=== PATIENT | female | born 1950 | race Asian ===

== ENCOUNTER 2021-02-24 11:07 | Inpatient (IN) | payer OTHER, MEDICAID, SELFPAY ==
[~2021-02-24] VITALS: Ht 152.4 cm; Wt 48.1 kg
[2021-02-24 16:00] VITALS: BP_SYST 119
[2021-02-24] MEDS ORDERED: MOM PO (17:13)
[2021-02-24] MEDS ORDERED: AMLO5TAB4 PO (17:13)
[2021-02-24] MEDS ORDERED: DOCU-144 PO (17:13)
[2021-02-24] MEDS ORDERED: TRAZ-250 PO (17:13)
[2021-02-24] MEDS ORDERED: BUPR-120 PO (17:13)
[2021-02-24] MEDS ORDERED: LEVE500T9 PO (17:13)
[2021-02-24] MEDS ORDERED: NA P133E41 RC (17:13)
[2021-02-24] MEDS ORDERED: ACET325T PO (17:13)
[2021-02-24] MEDS ORDERED: OLAN5TAB71 PO (17:13)
[2021-02-24] MEDS ORDERED: CRAN450T9 PO (17:13)
[2021-02-24] MEDS ORDERED: SYN50 PO (17:13)
[2021-02-24] MEDS ORDERED: ACET-2634 PO (17:13)
[2021-02-24] MEDS ORDERED: LIP20 PO (17:13)
[2021-02-24] MEDS ORDERED: BISA10SU61 RC (17:13)
[2021-02-24] MEDS ORDERED: FLEETMO RC (17:13)
[2021-02-24] MEDS ORDERED: LAM25 PO (17:13)
[2021-02-24] MEDS ORDERED: CYAN100010 PO (17:13)
[2021-02-24] MEDS ORDERED: ERGO1250 PO (17:13)
[2021-02-24] MEDS ORDERED: ACETAMINOPHEN 325 MG TABLET PO PRN (17:45)
[2021-02-24] MEDS ORDERED: ACETAMINOPHEN 500 MG TABLET PO SCH (17:45)
[2021-02-24] MEDS ORDERED: MINERAL OIL 133 ML ENEMA RC PRN (17:45)
[2021-02-24 18:07] VITALS: BP_SYST 119
[2021-02-24] MEDS: D5/0.45 NS 1,000 ML IV SCH (18:56)
[2021-02-24 19:34] LABS: BASOPHILS % (AUTO) 0.9 % (0.0-2.0); EOSINOPHILS # (AUTO) 0.3 K/uL (0.0-0.4); EOSINOPHILS % (AUTO) 5.8 % (0.0-4.0); HEMATOCRIT 39.3 % (36-48); HEMOGLOBIN 13.2 g/dL (12.0-16.0); LYMPHOCYTES # (AUTO) 1.3 K/uL (1.0-5.5); LYMPHOCYTES % (AUTO) 28.6 % (20.5-51.5); MEAN CORPUSCULAR HEMOGLOBIN 30 pg (27-31); MEAN CORPUSCULAR HGB CONC 34 % (32-36); MEAN CORPUSCULAR VOLUME 90 fL (79.0-98.0); MONOCYTES # (AUTO) 0.4 K/uL (0.0-1.0); MONOCYTES % (AUTO) 9.4 % (1.7-9.3); NEUTROPHILS # (AUTO) 2.4 K/uL (1.8-7.7); NEUTROPHILS % (AUTO) 55.3 % (40.0-70.0); PLATELET COUNT (AUTO) 206 K/uL (130-430); RED BLOOD CELL COUNT(AUTO) 4.37 MIL/uL (4.2-6.2); RED CELL DISTRIBUTION WIDTH 13.8 % (9.0-15.0); WHITE BLOOD COUNT (AUTO) 4.4 K/uL (4.8-10.8)
[2021-02-24 19:42] LABS: ALBUMIN 3.7 g/dL (3.4-4.8); CALCIUM 10.4 mg/dL (8.4-11.0); CREATININE 0.99 mg/dL (0.55-1.30); POTASSIUM 3.4 mmol/L (3.5-5.1); TOTAL BILIRUBIN 0.3 mg/dL (0.0-1.0)
[2021-02-24 20:31] VITALS: BP_SYST 115
[2021-02-24] MEDS: MILK OF MAGNESIA 30 ML UDC PO SCH (20:43)
[2021-02-24] MEDS: traZODone HCL 50 MG TABLET (DESYREL) PO SCH (20:43)
[2021-02-24] MEDS: levETIRAcetam 500 MG TABLET PO SCH (20:44)
[2021-02-24] MEDS: ATORVASTATIN 20 MG TABLET PO SCH (20:44)
[2021-02-24] MEDS: LamoTRIgine 25 MG TABLET PO SCH (20:50)
[2021-02-24 23:38] VITALS: BP_SYST 97
--- NOTE | 2021-02-25 02:59 | NUR ---
CONSULTATION PAGED/CALLED Reason for Consultation: CARDIO EVAL Person Who was Notified: OVIDIO Consulting Physician: NGUYEN Sewing Supervisor Specialty: Ordering Physician: RHYS
--- NOTE | 2021-02-25 03:00 | NUR ---
CONSULTATION PAGED/CALLED Reason for Consultation: INFECTION Person Who was Notified: OVIDIO Consulting Physician: Tim ROSALES [employer] Specialty: Ordering Physician: RHYS
[2021-02-25] MEDS ORDERED: SODIUM PHOSPHATE,MONO-DIBASIC 133 ML ENEMA RC PRN (05:45)
--- NOTE | 2021-02-25 06:45 | NUR ---
Patient pulled out peripheral iv x2. Restarted new iv to left hand, #22 gauge. Patient tolerated procedure well. Pt remains stable, BS128. Will continue to monitor.
[2021-02-25] MEDS: LEVOTHYROXINE SODIUM 0.05 MG TABLET PO SCH (07:23)
--- NOTE | 2021-02-25 07:30 | NUR ---
Nurse knowledge exchange completed with Andrea Jeffery. Passed on to receiving nurse that pt needs diet order and urine sample. Pt remains confused, a/o x2, needing frequent re orientation, vital signs stable at this time.
[2021-02-25 08:00] VITALS: BP_SYST 122
--- NOTE | 2021-02-25 08:00 | NUR ---
A/Ox1, on room air. IV on left FA, #22, site intact and patent. Ambulatory. Call light in place, bed locked at the lowest position, will continue to monitor.
[2021-02-25] MEDS: OLANZapine 5 MG TABLET PO SCH (08:26)
[2021-02-25] MEDS: DOCUSATE SODIUM 100 MG CAPSULE PO SCH (08:27)
[2021-02-25] MEDS: LamoTRIgine 25 MG TABLET PO SCH ×2 (08:27→20:33)
[2021-02-25] MEDS: levETIRAcetam 500 MG TABLET PO SCH ×2 (08:28→20:33)
[2021-02-25] MEDS: CYANOCOBALAMIN 1000 mCg TABLET PO SCH (08:28)
[2021-02-25] MEDS: amLODIPine BESYLATE 5 MG TABLET PO SCH (08:31)
[2021-02-25] MEDS ORDERED: BISACODYL 10 MG/SUPPOSITORY RC PRN (09:00)
[2021-02-25] MEDS ORDERED: CRANBERRY FRUIT PO SCH (09:00)
[2021-02-25] MEDS ORDERED: buPROPion HCL 150 MG XL TAB PO SCH (09:00)
--- NOTE | 2021-02-25 09:13 | NUR ---
per division roadmaster DR CEDILLO, [employer] WAS CALLED TO REQUEST FOR THE PACEMAKER TO BE INTERROGATED. LEFT A VOICE MESSAGE ON THE PHONE OF THE HOSPITALITY SPECIALIST IN THE AREA AND SPOKE TO CHATO, THE LITIGATION SPECIALIST.
--- NOTE | 2021-02-25 10:06 | NUR ---
CONSULTATION PAGED/CALLED Reason for Consultation: PSYCHIATRIC ILLNESS Person Who was Notified: SONDRA Consulting Physician: JOHN Insolvency Consultant Specialty: Ordering Physician: NGUYEN
--- NOTE | 2021-02-25 10:25 | NUR ---
Nutrition Update Darwin Scale 17 noted. Pt admitted for dizziness, DM. Diet: CCHO, finely chopped, mechanical soft w/ Glucerna BID BMI: 20.5 kg/m2 RD to follow per nutrition care standards.
[2021-02-25 11:33] VITALS: BP_SYST 112
[2021-02-25] MEDS ORDERED: DIATR MEGLU/DIATRIZ SOD 30 ML SOLUTION PO ONE (13:22)
[2021-02-25 13:49] LABS: BILIRUBIN,URINE NEGATIVE (NEGATIVE); BLOOD, URINE NEGATIVE (NEGATIVE); CLARITY/URINE CLEAR (CLEAR); COLOR,URINE YELLOW (YELLOW); GLUCOSE,URINE NEGATIVE (NEGATIVE); KETONES,URINE NEGATIVE (NEGATIVE); LEUKOCYTE ESTERASE ,URINE NEGATIVE (NEGATIVE); NITRITE, URINE NEGATIVE (NEGATIVE); PROTEIN URINE NEGATIVE (NEGATIVE); UROBILINOGEN,URINE 0.2 (0.2-1.0)
--- NOTE | 2021-02-25 14:45 | NUR ---
PATIENT IS ENCOURAGED TO DRINK THE CONTRAST FOR THE CT.
--- NOTE | 2021-02-25 15:30 | NUR ---
PATIENT IS TAKEN DOWN THE CT.
[2021-02-25 15:36] VITALS: BP_SYST 121
--- NOTE | 2021-02-25 16:20 | NUR ---
PATIENT RETURNS FROM CT SCAN. TOLERATED WITHOUT DISTRESS.
--- NOTE | 2021-02-25 19:15 | NUR ---
PATIENT ATTEMPTS TO GET OUT BED AND REMOVED IV. NEW IV SITE INITIATED. PATIENT IS ALSO ADVISED NOT TO GET OUT OF BED WITHOUT ASSISTANCE.
--- NOTE | 2021-02-25 19:37 | NUR ---
ROUNDS PATIENT RESTING COMFORTABLY IN BED AT THIS TIME, VITALS STABLE, NO PAIN AND DISCOMFORT AT THIS TIME. ASSESSMENT DONE AND DOCUEMNTED. SEE FLOWSHEET. NEEDS ATTENDED TO. SAFETY AND FALL MEASURES IN PLACED. CALL LIGHT PLACED WITHIN REACH.
[2021-02-25 20:00] VITALS: BP_SYST 119
[2021-02-25] MEDS: ATORVASTATIN 20 MG TABLET PO SCH (20:33)
[2021-02-25] MEDS: traZODone HCL 50 MG TABLET (DESYREL) PO SCH (20:33)
[2021-02-25] MEDS: MILK OF MAGNESIA 30 ML UDC PO SCH (20:34)
[2021-02-25] MEDS: D5/0.45 NS 1,000 ML IV SCH (23:45)
[2021-02-26] VITALS: BP_SYST 123
--- NOTE | 2021-02-26 03:15 | NUR ---
DR. ROSALES PATIENT SEEN BY DR. ROSALES, NO NEW ORDERS AT THIS TIME. WILL CONTINUE TO MONITOR
[2021-02-26] MEDS: D5/0.45 NS 1,000 ML IV SCH ×3 (04:52→20:00)
[2021-02-26] MEDS: LEVOTHYROXINE SODIUM 0.05 MG TABLET PO SCH (06:18)
--- NOTE | 2021-02-26 07:30 | NUR ---
Initial Note Patient asleep, wakes to verbal stimuli. Alert and oriented x 3, reoriented to time. No pain, no distress. Call light, bedside table, and phone within reach. Encouraged to call.
[2021-02-26 07:57] LABS: BASOPHILS % (AUTO) 0.7 % (0.0-2.0); EOSINOPHILS # (AUTO) 0.3 K/uL (0.0-0.4); EOSINOPHILS % (AUTO) 6.8 % (0.0-4.0); HEMATOCRIT 37.3 % (36-48); HEMOGLOBIN 12.4 g/dL (12.0-16.0); LYMPHOCYTES # (AUTO) 1.2 K/uL (1.0-5.5); LYMPHOCYTES % (AUTO) 28.7 % (20.5-51.5); MEAN CORPUSCULAR HEMOGLOBIN 30 pg (27-31); MEAN CORPUSCULAR HGB CONC 33 % (32-36); MEAN CORPUSCULAR VOLUME 91 fL (79.0-98.0); MONOCYTES # (AUTO) 0.3 K/uL (0.0-1.0); MONOCYTES % (AUTO) 8.1 % (1.7-9.3); NEUTROPHILS # (AUTO) 2.3 K/uL (1.8-7.7); NEUTROPHILS % (AUTO) 55.7 % (40.0-70.0); PLATELET COUNT (AUTO) 194 K/uL (130-430); RED BLOOD CELL COUNT(AUTO) 4.09 MIL/uL (4.2-6.2); RED CELL DISTRIBUTION WIDTH 13.9 % (9.0-15.0); WHITE BLOOD COUNT (AUTO) 4.1 K/uL (4.8-10.8)
[2021-02-26 08:00] VITALS: BP_SYST 120
--- NOTE | 2021-02-26 08:30 | NUR ---
MD Rounds Dr. Barrett at bedside.
[2021-02-26 09:05] LABS: ALBUMIN 3.2 g/dL (3.4-4.8); CALCIUM 9.2 mg/dL (8.4-11.0); CREATININE 0.82 mg/dL (0.55-1.30); POTASSIUM 3.7 mmol/L (3.5-5.1); THYROID STIMULATING HORMONE 0.55 uIu/mL (0.36-3.74); TOTAL BILIRUBIN 0.4 mg/dL (0.0-1.0)
[2021-02-26] MEDS ORDERED: CITALOPRAM HYDROBROMIDE 20 MG TABLET PO ONE (09:30)
[2021-02-26] MEDS: OLANZapine 5 MG TABLET PO SCH (09:44)
[2021-02-26] MEDS: DOCUSATE SODIUM 100 MG CAPSULE PO SCH (09:46)
[2021-02-26] MEDS: amLODIPine BESYLATE 5 MG TABLET PO SCH (09:46)
[2021-02-26] MEDS: levETIRAcetam 500 MG TABLET PO SCH ×2 (09:46→21:40)
[2021-02-26] MEDS: LamoTRIgine 25 MG TABLET PO SCH ×2 (09:47→21:30)
[2021-02-26] MEDS: CYANOCOBALAMIN 1000 mCg TABLET PO SCH (09:47)
[2021-02-26 11:32] VITALS: BP_SYST 105
--- NOTE | 2021-02-26 12:00 | NUR ---
Notes Patient confused, attempting to get out of bed without assistance. No pain or distress noted. Safety precautions in place, bed locked in lowest position with alarm on. Will continue to monitor.
--- NOTE | 2021-02-26 14:00 | NUR ---
Notes Patient pulled out IV, states she does not know why. Dressing placed to previous IV site, no active bleeding. Will attempt new IV following PT evaluation.
[2021-02-26 15:41] VITALS: BP_SYST 117
--- NOTE | 2021-02-26 15:59 | NUR ---
Dietitian Recommendations * Recommend CCHO, finely chopped, mechanical soft, Glucerna TID (ONS provides 660 kcal/day, 30 gm protein/day) * Maximum encouragement at meal times LP, RD Please refer to Nutrition Assessment for details. Addendum: 02/26/21 at [address] Amended: Links added.
--- NOTE | 2021-02-26 16:00 | NUR ---
Notes Patient attempting to get out of bed, confused. Requires constant reminders. Reoriented patient and provided education on plan of care and reason for hospital visit. Refusing new IV insertion at this time. Instructed on use and need for medications. Patient refused stating she wanted to rest. Will continue to educate and monitor. Will attempt at a later time. Bed in lowest position with alarm on. Call light and bedside table in reach, encouraged to call.
--- NOTE | 2021-02-26 17:19 | NUR ---
Notes New Iv 24 gauge inserted to right hand. Patient tolerated well; no pain or signs of infiltration or phlebitis.
--- NOTE | 2021-02-26 18:42 | NUR ---
Closing Note Patient resting in bed, no pain or distress noted. IVF running per MD order. Bedside table and call light in reach, reoriented patient on use. All needs met. Safety precautions in place, bed locked in lowest position with alarm on. Encouraged to call. Will continue to monitor and endorse to night nurse.
[2021-02-26 20:00] VITALS: BP_SYST 116; BP_SYST 122
--- NOTE | 2021-02-26 20:00 | NUR ---
Received pt in bed, verbally responsive and able to make most needs known. A/O X 1-2. No apparent signs of distress. Breathing adequately on RA. U/A specimen collected at this time; Ambulated to restroom. Safety precautions observed. IVF running as ordered. No signs of infiltration from IV site. Bed in low position. Call light within reach.
[2021-02-26] MEDS ORDERED: traZODone HCL 50 MG TABLET (DESYREL) PO SCH (21:00)
[2021-02-26] MEDS: MILK OF MAGNESIA 30 ML UDC PO SCH (21:41)
[2021-02-26] MEDS: ATORVASTATIN 20 MG TABLET PO SCH (21:41)
[2021-02-26 23:29] LABS: BILIRUBIN,URINE NEGATIVE (NEGATIVE); BLOOD, URINE NEGATIVE (NEGATIVE); CLARITY/URINE CLEAR (CLEAR); COLOR,URINE YELLOW (YELLOW); GLUCOSE,URINE NEGATIVE (NEGATIVE); KETONES,URINE NEGATIVE (NEGATIVE); LEUKOCYTE ESTERASE ,URINE NEGATIVE (NEGATIVE); NITRITE, URINE NEGATIVE (NEGATIVE); PROTEIN URINE NEGATIVE (NEGATIVE); UROBILINOGEN,URINE 0.2 (0.2-1.0)
[2021-02-27 01:44] VITALS: BP_SYST 140
[2021-02-27 04:00] VITALS: BP_SYST 129
[2021-02-27] MEDS: D5/0.45 NS 1,000 ML IV SCH ×2 (04:53→15:16)
[2021-02-27] MEDS: LEVOTHYROXINE SODIUM 0.05 MG TABLET PO SCH (06:18)
--- NOTE | 2021-02-27 06:40 | NUR ---
CLOSING NOTE Pt noted in bed, easily arousable. No apparent signs of distress. Breathing adequately on RA. Episode of incontinence to urine; inocente care rendered;Linens changed. Denies any pain/discomfort at this time.
[2021-02-27 07:50] LABS: BASOPHILS % (AUTO) 0.8 % (0.0-2.0); EOSINOPHILS # (AUTO) 0.3 K/uL (0.0-0.4); EOSINOPHILS % (AUTO) 5.3 % (0.0-4.0); HEMATOCRIT 39.9 % (36-48); HEMOGLOBIN 13.2 g/dL (12.0-16.0); LYMPHOCYTES # (AUTO) 1.1 K/uL (1.0-5.5); LYMPHOCYTES % (AUTO) 20.7 % (20.5-51.5); MEAN CORPUSCULAR HEMOGLOBIN 30 pg (27-31); MEAN CORPUSCULAR HGB CONC 33 % (32-36); MEAN CORPUSCULAR VOLUME 91 fL (79.0-98.0); MONOCYTES # (AUTO) 0.3 K/uL (0.0-1.0); NEUTROPHILS # (AUTO) 3.7 K/uL (1.8-7.7); NEUTROPHILS % (AUTO) 67.2 % (40.0-70.0); PLATELET COUNT (AUTO) 205 K/uL (130-430); RED BLOOD CELL COUNT(AUTO) 4.37 MIL/uL (4.2-6.2); RED CELL DISTRIBUTION WIDTH 13.7 % (9.0-15.0); WHITE BLOOD COUNT (AUTO) 5.6 K/uL (4.8-10.8)
[2021-02-27 08:01] VITALS: BP_SYST 126
--- NOTE | 2021-02-27 08:13 | NUR ---
Initial Note Patient awake and alert, oriented x 2, reoriented to time and event. No pain or distress observed. IVF infusing per MD order. Call light and bedside table in reach. Non-skid socks on. Bed in lowest position with alarm on. Encouraged to call.
[2021-02-27] MEDS: CYANOCOBALAMIN 1000 mCg TABLET PO SCH (08:42)
[2021-02-27] MEDS: levETIRAcetam 500 MG TABLET PO SCH ×2 (08:42→22:19)
[2021-02-27] MEDS: amLODIPine BESYLATE 5 MG TABLET PO SCH (08:43)
[2021-02-27] MEDS: CITALOPRAM HYDROBROMIDE 20 MG TABLET PO SCH (08:43)
[2021-02-27] MEDS: DOCUSATE SODIUM 100 MG CAPSULE PO SCH (08:43)
[2021-02-27] MEDS: LamoTRIgine 25 MG TABLET PO SCH ×2 (08:43→22:19)
[2021-02-27] MEDS: OLANZapine 5 MG TABLET PO SCH (08:43)
[2021-02-27] MEDS ORDERED: CITALOPRAM HYDROBROMIDE 20 MG TABLET PO SCH (09:00)
[2021-02-27 09:44] LABS: CREATININE 0.69 mg/dL (0.55-1.30); POTASSIUM 3.4 mmol/L (3.5-5.1)
[2021-02-27 12:00] VITALS: BP_SYST 127
--- NOTE | 2021-02-27 12:00 | NUR ---
Notes Patient asleep in bed, wakes to verbal stimuli. Confusion noted, requires constant reorienting to situation and time. Denies pain, no distress. Call light and bedside table in reach. Bed locked in lowest position with alarm on. Encouraged to call.
[2021-02-27 16:08] VITALS: BP_SYST 125
--- NOTE | 2021-02-27 16:25 | NUR ---
Notes Patient resting in bed, no pain or distress. Encouraged patient to eat a snack, only eats a few bites of applesauce. Able to take a couple of sips of Glucerna. Will continue to monitor and offer snacks. Call light in reach, bed in lowest position with alarm on. Encouraged patient to call.
--- NOTE | 2021-02-27 18:55 | NUR ---
Closing Note Patient awake, alert, and out of bed. Pulled out IV catheter stating she needed to use restroom. Reoriented to call light. Pressure held on previous IV site for active bleeding. Assisted patient to restroom. Linens changed. Will attempt new IV insertion. No pain or distress observed. Safety precautions in place. Bed locked in lowest position with alarm on. Call light and bedside table in reach. Will endorse to night nurse.
[2021-02-27 20:00] VITALS: BP_SYST 134
--- NOTE | 2021-02-27 20:45 | NUR ---
Left Fore arm 22 Gauge IV Re start , IV patent no s/sx of infiltration IV fluids infusing as ordered .
[2021-02-27] MEDS: MILK OF MAGNESIA 30 ML UDC PO SCH (22:19)
[2021-02-27] MEDS: ATORVASTATIN 20 MG TABLET PO SCH (22:19)
--- NOTE | 2021-02-27 23:35 | NUR ---
patient awake assist out of bed to Rest Room ambulates FALL MEASURES implemented , assist back to bed procedures explained call hoang given to patient / .
--- NOTE | 2021-02-27 23:46 | NUR ---
Hourly Rounding patient Resting verbally Responsive no SOB chest movement symmetrical also unlabored .
[2021-02-28 00:10] VITALS: BP_SYST 115
--- NOTE | 2021-02-28 03:46 | NUR ---
Patient PULL out IV left F/A , dressing applied , monitor procedures explained .
--- NOTE | 2021-02-28 05:29 | NUR ---
New IV start 22 Gauge left AC , patent flush no infiltration noted patient tolerate .
[2021-02-28] MEDS: LEVOTHYROXINE SODIUM 0.05 MG TABLET PO SCH (06:37)
[2021-02-28 08:00] VITALS: BP_SYST 137
--- NOTE | 2021-02-28 08:00 | NUR ---
Initial notes Awake, confused. Denies any pain or discomfort. Just want to sleep. bed alarm on. will monitor.
[2021-02-28] MEDS: OLANZapine 5 MG TABLET PO SCH (09:33)
[2021-02-28] MEDS: DOCUSATE SODIUM 100 MG CAPSULE PO SCH (09:33)
[2021-02-28] MEDS: CYANOCOBALAMIN 1000 mCg TABLET PO SCH (09:34)
[2021-02-28] MEDS: CITALOPRAM HYDROBROMIDE 20 MG TABLET PO SCH (09:34)
[2021-02-28] MEDS: LamoTRIgine 25 MG TABLET PO SCH ×2 (09:34→21:00)
[2021-02-28] MEDS: levETIRAcetam 500 MG TABLET PO SCH ×2 (09:34→23:03)
[2021-02-28] MEDS: amLODIPine BESYLATE 5 MG TABLET PO SCH (09:34)
--- NOTE | 2021-02-28 10:00 | NUR ---
notes- patient take all her morning meds.
--- NOTE | 2021-02-28 11:00 | NUR ---
Notes- resting in bed, no ditress
[2021-02-28 12:39] VITALS: BP_SYST 122
--- NOTE | 2021-02-28 13:00 | NUR ---
Notes- Feed lunch and eat 75% of her food.
[2021-02-28 16:47] VITALS: BP_SYST 125
--- NOTE | 2021-02-28 18:25 | NUR ---
closing notes Resting, calm the whole day. denies any pain.
[2021-02-28 20:00] VITALS: BP_SYST 104
[2021-02-28] MEDS: ATORVASTATIN 20 MG TABLET PO SCH (23:03)
[2021-02-28] MEDS: MILK OF MAGNESIA 30 ML UDC PO SCH (23:03)
[2021-03-01 00:55] VITALS: BP_SYST 116
[2021-03-01] MEDS: LEVOTHYROXINE SODIUM 0.05 MG TABLET PO SCH (05:55)
--- NOTE | 2021-03-01 07:38 | NUR ---
PHYSICAL THERAPY CO-SIGN The Physical Therapy Progress Notes documented by Retail Selling Specialist have been reviewed. Reviewed/Co-Signed by: Santiago Hernandez Documentation Done by: LUIS MANUEL ARZATE PTA Addendum: 03/01/21 at 0739 by Santiago Hernandez PT Amended: Links added.
[2021-03-01 08:00] VITALS: BP_SYST 119
--- NOTE | 2021-03-01 08:00 | NUR ---
Morning Rounds: PT awake and alert, resting in bed, no s/s of respiratory distress. Seizure/fall precautions in place, incontinent. Breakfast at bedside, call light within reach.
[2021-03-01] MEDS: CITALOPRAM HYDROBROMIDE 20 MG TABLET PO SCH (09:53)
[2021-03-01] MEDS: CYANOCOBALAMIN 1000 mCg TABLET PO SCH (09:53)
[2021-03-01] MEDS: amLODIPine BESYLATE 5 MG TABLET PO SCH (09:54)
[2021-03-01] MEDS: OLANZapine 5 MG TABLET PO SCH (09:54)
[2021-03-01] MEDS: DOCUSATE SODIUM 100 MG CAPSULE PO SCH (09:55)
[2021-03-01] MEDS: LamoTRIgine 25 MG TABLET PO SCH (09:55)
[2021-03-01] MEDS: levETIRAcetam 500 MG TABLET PO SCH (09:55)
[2021-03-01 11:30] VITALS: BP_SYST 123
--- NOTE | 2021-03-01 12:13 | NUR ---
Discharge Planning: DCP faxed pt referral to [facility] (F [phone] P [phone]) DCP will follow up with Angella in admissions. Addendum: 03/01/21 at 1518 by Yari Davidson DP DCP followed up with pt referral to [facility] (F [phone] P [phone]) per Arun pt will go to Rm 36A, DCP arranged transport with [facility] [phone], patient packet taken tto nurse station. Addendum: 03/01/21 at 1519 by Yari Davidson DP transport arranged BLS for 5:15pm
--- NOTE | 2021-03-01 15:22 | NUR ---
Call placed to patient's [id number] agreed to patient's transfer to [facility].
[2021-03-01 15:32] VITALS: BP_SYST 113
[2021-03-01 16:00] VITALS: BP_SYST 128
[2021-03-01 16:09] VITALS: BP_SYST 128
--- NOTE | 2021-03-01 17:00 | NUR ---
Call Report: Called Emily VERAS at [facility] to give report, going to bed 36 A, admit DR. Rabago.
--- NOTE | 2021-03-01 19:22 | NUR ---
DC transfer note: Transfer packet given to [facility] EMT, only belonging -1 pair of socks. No s/s of respiratory distress. Report given to unit number 615. IV removed, applied dry gauze, no bleeding. [facility] transport pt to [facility] in stable condition.
--- NOTE | 2021-03-02 07:03 | NUR ---
PHYSICAL THERAPY CO-SIGN The Physical Therapy Progress Notes documented by Parking Lot Spotter have been reviewed. Reviewed/Co-Signed by: Santiago Hernandez Documentation Done by: RIKI JACK PTA Addendum: 03/02/21 at 0703 by Santiago Hernandez PT Amended: Links added.
== END 2021-03-01 19:22 | DRG 101 ==
LOC: SMU 16:29
PROVIDERS: ADMIT Internal Medicine; ATTEND Internal Medicine
DX: G40.909 Epilepsy, unspecified, not intractable, without status epilepticus (principal); C80.1 Malignant (primary) neoplasm, unspecified; R13.10 Dysphagia, unspecified; R26.89 Other abnormalities of gait and mobility; E03.9 Hypothyroidism, unspecified; F03.90 Unspecified dementia, unspecified severity, without behavioral disturbance, psychotic disturbance, mood disturbance, and anxiety; E78.5 Hyperlipidemia, unspecified; K21.9 Gastro-esophageal reflux disease without esophagitis; Z20.822 Contact with and (suspected) exposure to COVID-19; F31.9 Bipolar disorder, unspecified; I10 Essential (primary) hypertension; R62.7 Adult failure to thrive; Z95.0 Presence of cardiac pacemaker; Z79.1 Long term (current) use of non-steroidal anti-inflammatories (NSAID); Z79.890 Hormone replacement therapy; Z79.899 Other long term (current) drug therapy; Z88.8 Allergy status to other drugs, medicaments and biological substances; Z68.20 Body mass index [BMI] 20.0-20.9, adult
CPT/HCPCS: 36415; 71045; 76376; 80048; 80053; 80061; 81003; 82962; 83036; 83735; 83880; 84443; 85025; 87081; 93005; 93306; 97110-GP; 97530-GP; Q9964; Q9967